=== PATIENT | female | born 1990 | race Caucasian/White ===

== ENCOUNTER 2016-11-18 12:25 | Emergency (ER) | payer OTHER ==
[~2016-11-18] VITALS: Ht 165.1 cm; Wt 69.9 kg
[~2016-11-18 12:25] MED LIST: CIPR250T30 PO; CLIN300C86 PO; CYCL10TA2 PO; METR500T PO; NAPR500T3 PO; OXYC-323 PO
[2016-11-18 12:30] VITALS: BP 141/87
--- NOTE | 2016-11-18 14:15 | PHYS DOC ---
Past Medical History Past Medical History: Asthma, Bipolar, P.I.D., STD Additional Past Medical Histor: trichamonas, gonorhea, chlamydia, HPV, ectopic Past Surgical History: Other Additional Past Surgical Histo: ectopic surgery Additional Information: 1 ppd Alcohol Use: Occasionally Drug Use: Marijuana Adult General Chief Complaint Chief Complaint: DIARRHEA HPI HPI Patient is a 26 year old female who presents with left ear pain for 2 days. She 's also had some nasal congestion. This morning she had 2 episodes of loose stools. She's had nausea without vomiting. She reports intermittent abdominal cramping and gas. She denies drainage from the ear, fever, sore throat, or cough. She does not have a PCP. Review of Systems Review of Systems Constitutional: Denies fever or chills. [] Eyes: Denies change in visual acuity, redness, or eye pain. [] HENT: Denies sore throat. Reports left ear pain and nasal congestion. Respiratory: Denies cough or shortness of breath. [] Cardiovascular: Denies chest pain, palpitations or edema. [] GI: Denies nausea, vomiting, bloody stools or diarrhea. Reports loose stools and intermittent abdominal cramping. : Denies dysuria, hematuria or urinary frequency. [] Musculoskeletal: Denies back pain or joint pain. [] Integument: Denies rash or skin lesions. [] Neurologic: Denies headache, focal weakness or sensory changes. [] Endocrine: Denies polyuria or polydipsia. [] Psych: Denies anxiety or depression. [] All systems reviewed and negative unless otherwise stated in the HPI. Allergies Allergies Allergies Coded Allergies Type Severity Reaction Last Updated Verified No Known Drug Allergies 08/11/16 No Physical Exam Physical Exam Constitutional: Well developed, well nourished, no acute distress, non-toxic appearance. [] HENT: Normocephalic, atraumatic, bilateral external ears normal, oropharynx moist, no oral exudates, nose normal. Bilateral TMs without erythema or bulging. There is clear fluid behind the left TM. There is no posterior pharyngeal erythema or tonsillar edema. Bilateral nasal turbinates are mildly swollen and erythematous. Eyes: PERRLA, EOMI, conjunctiva normal, no discharge. [] Neck: Normal range of motion, no tenderness, supple, no stridor. [] Cardiovascular: Heart rate regular rhythm, no murmur [] Lungs & Thorax: Bilateral breath sounds clear to auscultation without wheezes, rales, or rhonchi. Abdomen: Bowel sounds normal, soft, no tenderness, no masses, no pulsatile masses. [] Skin: Warm, dry, no erythema, no rash. [] Neurologic: Alert and oriented X 3, normal motor function, normal sensory function, no focal deficits noted. [] Psychologic: Affect normal, judgement normal, mood normal. [] Current Patient Data Vital Signs Vital Signs Date Time Temp Pulse Resp B/P Pulse Ox O2 Delivery O2 Flow Rate FiO2 11/18/16 12:30 98.4 77 20 141/87 100 Room Air 98.4 EKG EKG [] Radiology/Procedures Radiology/Procedures [] Course & Med Decision Making Course & Med Decision Making Pertinent Labs and Imaging studies reviewed. (See chart for details) [] Dragon Disclaimer Dragon Disclaimer This electronic medical record was generated, in whole or in part, using a voice recognition dictation system. Departure Departure Impression: Primary Impression: Viral syndrome Disposition: 01 HOME, SELF-CARE Condition: STABLE Referrals: NO PCP (PCP) Patient Instructions: Viral Syndrome Additional Instructions: Your symptoms appear to be caused by a viral infection. Your ear pain is related to your nasal congestion. Please use Flonase to help decrease nasal congestion, which will in turn decrease your ear pain. Please drink plenty of water to stay hydrated and get lots of rest. Please eat a bland diet without lots of spicy or greasy foods until your bowel movements return to normal. Return to the emergency department if you have any new or concerning symptoms. POLY TURNER Nov 18, 2016 14:15
== END 2016-11-18 14:20 | disposition home or self-care (01) ==
LOC: ER 12:25
DX: B34.9 Viral infection, unspecified (principal); H92.01 Otalgia, right ear; R19.7 Diarrhea, unspecified; R11.2 Nausea with vomiting, unspecified; J45.909 Unspecified asthma, uncomplicated; F31.9 Bipolar disorder, unspecified; F17.200 Nicotine dependence, unspecified, uncomplicated; F12.10 Cannabis abuse, uncomplicated; N73.9 Female pelvic inflammatory disease, unspecified
CPT/HCPCS: 99281